=== PATIENT | female | born 1960 | race Caucasian/White ===

== ENCOUNTER 2017-08-12 13:04 | Outpatient (CLI) | payer BC ==
--- NOTE | 2017-08-12 14:53 | Diagnostic Imaging Report ---
LUIGI GUSTAFSON [facility] [address] [facility] [address] [address] Report Submission Date: Aug 12, 2017 2:00:30 PM ARABIC PROFESSOR Patient Study Name: YADIRA SMITH Date: Aug 12, 2017 1:18:30 PM ARABIC PROFESSOR Modality Type: CR Gender: F Description: CHEST : 62 Institution: [facility] Physician: LUIGI GUSTAFSON Examination: Plain film ribs History: Discomfort Findings: 6 views of the left and right ribs demonstrates normal cortical margins. No fracture or dislocation. Underlying parenchymal without abnormality. Impression: No rib fracture/abnormality. Electronically signed on Aug 12, 2017 2:00:30 PM ARABIC PROFESSOR by: Jass BAUMAN
--- NOTE | 2017-08-12 14:54 | Diagnostic Imaging Report ---
LUIGI GUSTAFSON [facility] [address] [facility] [address] [address] Report Submission Date: Aug 12, 2017 1:58:36 PM HAND SINGER Patient Study Name: YADIRA SMITH Date: Aug 12, 2017 1:32:32 PM HAND SINGER Modality Type: CR Gender: F Description: LOWER EXTREMITY : 62 Institution: [facility] Physician: LUIGI GUSTAFSON Examination: Plain film knee History: Knee discomfort Findings: 3 views of the knee demonstrates normal cortical margins. No fracture. No dislocation. Minimal patellar spurring. No joint effusion. No soft tissue irregularity. Impression: No acute appearing osseous abnormality. Electronically signed on Aug 12, 2017 1:58:36 PM HAND SINGER by: Jass BAUMAN
== END 2017-08-12 13:06 ==
LOC: RAD 13:04
PROVIDERS: ATTEND Family Medicine
DX: M25.562 Pain in left knee (principal); R07.81 Pleurodynia
CPT/HCPCS: 71110; 73562